=== PATIENT | female | born 1965 | race Caucasian/White ===

== ENCOUNTER → 2017-01-13 | Outpatient (CLI) | payer BC ==
[~2017-01-13] MED LIST: ADDERALL10 MG PO; AMITRIPTYLINE H10 M1 PO; BETAINE HCL PO; FLEXERIL 1010 MG/TAB PO; LICORICE CHEW; LINZESS290CAP PO; MSM1000 MG PO; MULTI VITAMINS1 TAB PO; NATURAL MAGNES200 MG PO; NEURONTIN400 MG/CAP PO; NEURONTIN800 MG/TAB PO; OMEGA-31 SGL PO; PROBIOTIC FORMU1 CAP PO; ULTRAM 50MG TAB50 MG PO; VITAMIN D 50,1.25 MG PO
== END ==
LOC: MC.RAD 09:51
DX: N63 Unspecified lump in breast (principal)

== ENCOUNTER 2017-04-08 08:22 | Day surgery (SDC) | payer BC ==
[~2017-04-08] VITALS: Ht 172.7 cm; Wt 54.1 kg
[2017-04-08 08:48] VITALS: BP 133/90; PULSE 71; TEMP 98.1
[2017-04-08] MEDS ORDERED: ADDERALL10 MG PO (08:54)
[2017-04-08] MEDS ORDERED: NEURONTIN800 MG/TAB PO (08:55)
[2017-04-08] MEDS ORDERED: AMITRIPTYLINE H10 M1 PO (08:56)
[2017-04-08] MEDS ORDERED: NEURONTIN400 MG/CAP PO (08:56)
[2017-04-08] MEDS ORDERED: LINZESS290CAP PO (08:57)
[2017-04-08] MEDS ORDERED: FLEXERIL 1010 MG/TAB PO (08:57)
[2017-04-08] MEDS ORDERED: ULTRAM 50MG TAB50 MG PO (08:58)
[2017-04-08] MEDS ORDERED: NATURAL MAGNES200 MG PO (09:00)
[2017-04-08] MEDS ORDERED: OMEGA-31 SGL PO (09:01)
[2017-04-08] MEDS ORDERED: MULTI VITAMINS1 TAB PO (09:02)
[2017-04-08] MEDS ORDERED: BETAINE HCL PO (09:04)
[2017-04-08] MEDS ORDERED: MSM1000 MG PO (09:05)
[2017-04-08] MEDS ORDERED: VITAMIN D 50,1.25 MG PO (09:08)
[2017-04-08] MEDS ORDERED: LICORICE CHEW (09:10)
[2017-04-08] MEDS ORDERED: PROBIOTIC FORMU1 CAP PO (09:11)
[2017-04-08 10:10] VITALS: BP 94/61; PULSE 67; TEMP 97.7
[2017-04-08 10:15] VITALS: BP 112/72; PULSE 64
[2017-04-08 10:30] VITALS: BP 102/68; PULSE 59
[2017-04-08 10:45] VITALS: BP 119/58; PULSE 60
[2017-04-08 11:00] VITALS: BP 125/72; PULSE 59
== END 2017-04-08 11:13 | disposition home or self-care (01) ==
LOC: SDCO 08:22
DX: Z12.11 Encounter for screening for malignant neoplasm of colon (principal); K21.0 Gastro-esophageal reflux disease with esophagitis; F41.9 Anxiety disorder, unspecified; Z80.0 Family history of malignant neoplasm of digestive organs
CPT/HCPCS: OP; J2704; J7120

== ENCOUNTER → 2019-02-13 | Outpatient (CLI) | payer BC | LOC: COL.RAD 15:47 | DX: R10.31 Right lower quadrant pain (principal) | CPT/HCPCS: Q9967 ==

== ENCOUNTER → 2021-11-27 | Outpatient (CLI) | payer OTHER | LOC: MC.RAD 10-08 13:45 | DX: Z12.31 Encounter for screening mammogram for malignant neoplasm of breast (principal) ==